=== PATIENT | female | born 1940 ===

== ENCOUNTER 2022-01-02 16:36 | Inpatient (IN) | payer OTHER ==
[~2022-01-02] VITALS: Ht 157.5 cm; Wt 36.1 kg
[2022-01-02 17:01] LABS: Hematocrit 41.9 % (33.0-51.0); Hemoglobin 13.8 g/dL (11.5-16.0); Mean Corpuscular HGB 29.3 pg (26.0-34.0); Mean Corpuscular HGB Conc 32.9 g/dL (31.5-36.5); Mean Corpuscular Volume 89 fL (80-100); Mean Platelet Volume 12.2 fL (9.1-12.4); Platelet Count 273 K/mm3 (150-400); RDW Coefficient Variation 15.8 % (11.7-14.2); Red Blood Cell Count 4.71 M/mm3 (3.80-5.20)
[2022-01-02 17:24] LABS: Albumin, Blood 2.5 g/dL (3.4-5.0); Albumin/Globulin Ratio 0.7 (0.8-1.8); Bilirubin, Total 1.1 mg/dL (0.1-1.0); Bun/Creatinine Ratio 27.5 (12.0-20.0); Calcium, Blood 9.2 mg/dL (8.5-10.1); Creatinine, Blood 0.98 mg/dL (0.40-1.00); Globulin, Blood 3.8 g/dL (2.2-4.0); Potassium, Blood 4.6 mmol/L (3.5-5.5); Total Protein, Blood 6.3 g/dL (6.4-8.2)
[2022-01-02 17:52] LABS: White Blood Cell Count 18.07 K/mm3 (4.00-11.30)
[2022-01-02 17:58] LABS: BASOPHILS PERCENT MAN 0 % (0-2); EOSINOPHILS PERCENT MAN 0 % (0-6); LYMPHOCYTES ABSOLUTE MAN 1.62 K/mm3 (0.84-5.20); LYMPHOCYTES PERCENT MAN 9 % (21-46); MONOCYTES ABSOLUTE MAN 1.26 K/mm3 (0.16-1.47); MONOCYTES PERCENT MAN 7 % (4-13); NEUTROPHILS ABSOLUTE MAN 15.17 K/mm3 (1.96-9.15); SEG NEUTROPHILS PERCENT MAN 84 % (41-73); TOTAL CELLS COUNTED 100
[2022-01-03 00:41] LABS: Influenza A, PCR NEGATIVE (NEGATIVE); Influenza B, PCR NEGATIVE (NEGATIVE); Resp Syncytial Virus, PCR NEGATIVE (NEGATIVE); SARS-Cov-2 (COVID-19) PCR, MMC NEGATIVE (NEGATIVE)
[2022-01-03] MEDS ORDERED: LISI20 PO (04:18)
[2022-01-03] MEDS ORDERED: ALBU2.5V5 INH (04:19)
[2022-01-03] MEDS ORDERED: MELATONIN5 M1 (04:20)
[2022-01-03] MEDS ORDERED: MASOPHEN325 M4 PO (04:21)
[2022-01-03] MEDS ORDERED: Norco 10-325 T1 EACH PO (04:23)
[2022-01-03] MEDS ORDERED: LOPE2C PO (04:35)
[2022-01-03] MEDS ORDERED: AMLO10 PO (04:36)
[2022-01-03 05:34] LABS: BASOPHILS ABSOLUTE AUTO 0.01 K/mm3 (0.00-0.23); BASOPHILS PERCENT AUTO 0 % (0-2); EOSINOPHILS PERCENT AUTO 0 % (0-6); Hematocrit 39.4 % (33.0-51.0); Hemoglobin 12.9 g/dL (11.5-16.0); IMMATURE GRAN ABSOLUTE AUTO 0.07 K/mm3 (0.00-0.10); IMMATURE GRAN PERCENT AUTO 1 % (0-1); LYMPHOCYTES ABSOLUTE AUTO 0.83 K/mm3 (0.84-5.20); LYMPHOCYTES PERCENT AUTO 8 % (21-46); MONOCYTES ABSOLUTE AUTO 0.54 K/mm3 (0.16-1.47); MONOCYTES PERCENT AUTO 5 % (4-13); Mean Corpuscular HGB 29.3 pg (26.0-34.0); Mean Corpuscular HGB Conc 32.7 g/dL (31.5-36.5); Mean Corpuscular Volume 89 fL (80-100); NEUTROPHILS ABSOLUTE AUTO 9.19 K/mm3 (1.96-9.15); NEUTROPHILS PERCENT AUTO 86 % (41-73); Platelet Count 218 K/mm3 (150-400); RDW Coefficient Variation 15.6 % (11.7-14.2); RDW Standard Deviation 49.9 fL (35.1-46.3); Red Blood Cell Count 4.41 M/mm3 (3.80-5.20); White Blood Cell Count 10.64 K/mm3 (4.00-11.30)
[2022-01-03 05:53] LABS: Albumin, Blood 2.4 g/dL (3.4-5.0); Albumin/Globulin Ratio 0.7 (0.8-1.8); Bilirubin, Total 0.8 mg/dL (0.1-1.0); Bun/Creatinine Ratio 32.5 (12.0-20.0); Calcium, Blood 8.6 mg/dL (8.5-10.1); Creatinine, Blood 0.83 mg/dL (0.40-1.00); Globulin, Blood 3.6 g/dL (2.2-4.0); Potassium, Blood 4.5 mmol/L (3.5-5.5)
--- NOTE | 2022-01-03 07:47 | NUR ---
NEW ADMISSION FROM ER. PT A/0X4 VERY PLEASANT AND LYUBOV TO MAKE NEEDS KNOWN. SBA UNSTEAD ON FEET. PT REQUESTING THIS MORNING SHE BE ALLOWED TO REST D/T NOT GETTING MUCH SLEEP. CALL LIGHT WITHIN REACH.
[2022-01-03 09:05] LABS: Alpha Feto Protein, Tumor Mkr 4.1 ng/mL (0.0-8.0); Cancer Antigen 19-9 434.6 U/mL (2.0-37.0)
--- NOTE | 2022-01-03 11:30 | NUR ---
Pt resting in bed and A&OX4. Pt's friend at bedside. Engaged in therapeutic listening as Pt discusses plan of care and findings. Pt reports plan to wait until all information is available before making a decision. She reports if cancer is metatstatic she does not want to pursue treatment. She reports her son had metastatic pancreatic cancer and does not want to go through what he went through. Continued therapeutic listening. Pt and friend report adequate support at home and also has the option to move back down to [place] with her daughter. Discussed code status wishes. Educated on life sustaining treatments including risk factors and implications of CPR. Pt reports her wishes are Full Code for now pending more information regarding cancer diagnosis. Pt does report [facility]. Continued therapeutic listening and answered questions. Pt expresses appreciaiton and reports no new concerns at this time. Palliative Care will remain available.
--- NOTE | 2022-01-03 13:01 | NUR ---
Late Entry from previous visit note. [facility]ed [facility]. [facility] responds with no AD on file.
--- NOTE | 2022-01-03 16:48 | NUR ---
DAY SHIFT SUMMARY 81 YR OLD FEMALE WITH SEPSIS PNEUMONIA. NEW DX WITH CANCER AND PAST HX OF CANCER. PT IS A RETIRED NURSE. FAMILY/FRIENDS AT BEDSIDE THROUGHOUT SHIFT. ABLE TO TAKE MEDS WHOLE, ON RA, PALIATIVE CARE CONSULT THIS SHIFT. PT ON TELE WITH NSR IN THE 80S. CALL LIGHT WITHIN REACH AND ABLE TO CALL APPROPRIATE.
[2022-01-04 05:39] LABS: BASOPHILS ABSOLUTE AUTO 0.03 K/mm3 (0.00-0.23); BASOPHILS PERCENT AUTO 0 % (0-2); EOSINOPHILS ABSOLUTE AUTO 0.06 K/mm3 (0.00-0.68); EOSINOPHILS PERCENT AUTO 0 % (0-6); Hematocrit 36.7 % (33.0-51.0); Hemoglobin 11.6 g/dL (11.5-16.0); IMMATURE GRAN ABSOLUTE AUTO 0.09 K/mm3 (0.00-0.10); IMMATURE GRAN PERCENT AUTO 1 % (0-1); LYMPHOCYTES ABSOLUTE AUTO 1.81 K/mm3 (0.84-5.20); LYMPHOCYTES PERCENT AUTO 11 % (21-46); MONOCYTES ABSOLUTE AUTO 1.22 K/mm3 (0.16-1.47); MONOCYTES PERCENT AUTO 8 % (4-13); Mean Corpuscular HGB 28.6 pg (26.0-34.0); Mean Corpuscular HGB Conc 31.6 g/dL (31.5-36.5); Mean Corpuscular Volume 91 fL (80-100); Mean Platelet Volume 12.5 fL (9.1-12.4); NEUTROPHILS ABSOLUTE AUTO 13.16 K/mm3 (1.96-9.15); NEUTROPHILS PERCENT AUTO 80 % (41-73); Platelet Count 217 K/mm3 (150-400); RDW Standard Deviation 51.4 fL (35.1-46.3); Red Blood Cell Count 4.05 M/mm3 (3.80-5.20); White Blood Cell Count 16.37 K/mm3 (4.00-11.30)
[2022-01-04 06:10] LABS: Albumin, Blood 2.1 g/dL (3.4-5.0); Albumin/Globulin Ratio 0.6 (0.8-1.8); Bilirubin, Total 0.7 mg/dL (0.1-1.0); Calcium, Blood 8.6 mg/dL (8.5-10.1); Creatinine, Blood 1.32 mg/dL (0.40-1.00); Globulin, Blood 3.3 g/dL (2.2-4.0); Total Protein, Blood 5.4 g/dL (6.4-8.2)
--- NOTE | 2022-01-04 07:29 | NUR ---
PT REQUESTING ENEMA OVERNIGHT. PER DR. LOVE TRY USING SUPPOSITORY FIRST. PT AGREEABLE TO PLAN HOWEVER ONCE AVAILABLE PT CHANGED HER MIND AND WANTED TO SLEEP. PT C/O NAUSEA/PAIN AND MEDICATED PER AUG.
--- NOTE | 2022-01-04 08:00 | NUR ---
pt laying in bed watching tv, a/ox3, pleasant and cooperative with care, follows commands well, denies pain, spoke about wanting an enema today, takes po meds without diff, skin pale c/w/d, mara, lungs have exp wheezing t/o, resp even and unlabored, no cough noted at this time, currently on r/a, hrr, no edema noted, iv site to rac, s.l. site is clear and patent, btx4, abd flat soft nontender, voids without diff, skin pale, and frail, mara barton call light in reach.
[2022-01-04 10:08] LABS: International Normalized Ratio 1.07; Prothrombin Time Results 11.2 Sec (9.7-11.5)
--- NOTE | 2022-01-04 18:36 | NUR ---
pt was given a suppos today with no results, attempted twice, no acute changes this shift. call light in reach.
[2022-01-05 05:22] LABS: Hematocrit 40.9 % (33.0-51.0); Hemoglobin 12.9 g/dL (11.5-16.0); Mean Corpuscular HGB 28.8 pg (26.0-34.0); Mean Corpuscular HGB Conc 31.5 g/dL (31.5-36.5); Mean Corpuscular Volume 91 fL (80-100); Mean Platelet Volume 12.1 fL (9.1-12.4); Platelet Count 259 K/mm3 (150-400); RDW Coefficient Variation 16.2 % (11.7-14.2); RDW Standard Deviation 53.5 fL (35.1-46.3); Red Blood Cell Count 4.48 M/mm3 (3.80-5.20)
[2022-01-05 05:30] LABS: BASOPHILS ABSOLUTE AUTO 0.02 K/mm3 (0.00-0.23); BASOPHILS PERCENT AUTO 0 % (0-2); EOSINOPHILS ABSOLUTE AUTO 0.01 K/mm3 (0.00-0.68); EOSINOPHILS PERCENT AUTO 0 % (0-6); IMMATURE GRAN ABSOLUTE AUTO 0.12 K/mm3 (0.00-0.10); IMMATURE GRAN PERCENT AUTO 1 % (0-1); LYMPHOCYTES ABSOLUTE AUTO 0.91 K/mm3 (0.84-5.20); LYMPHOCYTES PERCENT AUTO 6 % (21-46); MONOCYTES ABSOLUTE AUTO 1.04 K/mm3 (0.16-1.47); MONOCYTES PERCENT AUTO 6 % (4-13); NEUTROPHILS ABSOLUTE AUTO 14.38 K/mm3 (1.96-9.15); NEUTROPHILS PERCENT AUTO 87 % (41-73); White Blood Cell Count 16.48 K/mm3 (4.00-11.30)
[2022-01-05 05:50] LABS: Bun/Creatinine Ratio 28.6 (12.0-20.0); Calcium, Blood 8.5 mg/dL (8.5-10.1); Creatinine, Blood 1.19 mg/dL (0.40-1.00); Potassium, Blood 5.1 mmol/L (3.5-5.5)
--- NOTE | 2022-01-05 07:26 | NUR ---
PT C/O CONT. TO FEEL CONSTPIATED AND REQUESTING FLEET ENEMA. RONDA NET WPF DEVELOPER NOTIFIED WITH ORDER. PT LATER C/O WORSENING ABD PAIN AND REPORTING IT IS SPREADING TO THE LEFT SIDE. RIGHT SIDE OF ABDOMEN FIRM BOWEL SOUNDS HYPOACTIVE. ABDOMEN XRAY REQUESTED AND PER MD PT ALSO LYUBOV TO HAVE FENTANYL FOR WORSENING PAIN. PT BROUGHT DOWN TO XRAY HOWEVER AWAITING RESULTS. CRITICAL BLOOD GLUCOSE CALLED BY [facility] THIS MORNING WITH LABS. PER PT SHE HAS HYPOGLYCIMIA WHEN SHE DOESN'T EAT AND HER BG CAN BE AROUND 50S. PT REPORTS SHE HAS NOT BEEN EATING WELL BECAUSE WHEN SHE SWALLOWS IT IS VERY PAINFUL. PT GIVEN APPLE JUICE WITH SUGAR AND NOTIFIED WITH ORDER FOR D5 IN 1/2 NORMAL SALINE. PT ONLY LYUBOV TO DRINK 1 1/2 CUP OF APPLE JUICE. BG CHECKED AFTER JUICE AND GLUCOMETER READING <42. NOTIFIED AND PER MD NO ADDITIONAL INTERVENTION AT THIS TIME.
--- NOTE | 2022-01-05 08:00 | NUR ---
pt up to bsc attempting to move her bowels, she reports she had an enema last night, but not successful, a/ox3, pleasant and cooperative with care, follows commands well, states she has a little pain with coughing, lungs are clear in upper espinoza, dim in bases resp even and unlabored, no cough noted at this time, but reports she has an occational cough, hrr, no edema noted, ppp+2, cap refill<3sec, vs stable, afebrile, iv site to lfa site is clear and patent, infusing d5 as ordered due to low glucose this am, btx4, abd firm somewhat tender, feels constipated, voids without diff, skin frail, c/w/d, maew, general weakness, mick, call light in reach.
--- NOTE | 2022-01-05 18:16 | NUR ---
pt has been a bit more painful today, continues to be constipated, started her on miralax today, no further changes this shift. call light in reach.
--- NOTE | 2022-01-06 05:24 | NUR ---
PT UNABLE TO HAVE NOTABLE BM DURING THE NIGHT. MEDICATED FOR PAIN PER AUG. MAG CITRATE ORDERED FOR MORNING. PT STATES SHE FEELS WEAKER TODAY.
[2022-01-06 05:37] LABS: BASOPHILS ABSOLUTE AUTO 0.02 K/mm3 (0.00-0.23); BASOPHILS PERCENT AUTO 0 % (0-2); EOSINOPHILS ABSOLUTE AUTO 0.01 K/mm3 (0.00-0.68); EOSINOPHILS PERCENT AUTO 0 % (0-6); Hematocrit 36.8 % (33.0-51.0); Hemoglobin 11.8 g/dL (11.5-16.0); IMMATURE GRAN ABSOLUTE AUTO 0.08 K/mm3 (0.00-0.10); IMMATURE GRAN PERCENT AUTO 1 % (0-1); LYMPHOCYTES PERCENT AUTO 7 % (21-46); MONOCYTES ABSOLUTE AUTO 1.05 K/mm3 (0.16-1.47); MONOCYTES PERCENT AUTO 8 % (4-13); Mean Corpuscular HGB 29.1 pg (26.0-34.0); Mean Corpuscular HGB Conc 32.1 g/dL (31.5-36.5); Mean Corpuscular Volume 91 fL (80-100); Mean Platelet Volume 12.4 fL (9.1-12.4); NEUTROPHILS ABSOLUTE AUTO 11.71 K/mm3 (1.96-9.15); NEUTROPHILS PERCENT AUTO 85 % (41-73); Platelet Count 211 K/mm3 (150-400); RDW Coefficient Variation 16.1 % (11.7-14.2); RDW Standard Deviation 52.7 fL (35.1-46.3); Red Blood Cell Count 4.06 M/mm3 (3.80-5.20); White Blood Cell Count 13.77 K/mm3 (4.00-11.30)
[2022-01-06 06:02] LABS: Albumin, Blood 2.1 g/dL (3.4-5.0); Anion Gap 8 mmol/L (6-16); Blood Urea Nitrogen 33 mg/dL (8-24); Bun/Creatinine Ratio 28.9 (12.0-20.0); CO2, Blood 19 mmol/L (21-32); Calcium, Blood 8.3 mg/dL (8.5-10.1); Chloride, Blood 102 mmol/L (98-108); Creatinine, Blood 1.14 mg/dL (0.40-1.00); Glomerular Filtration Rate 48 (60-); Glucose, Blood 143 mg/dL (70-99); Phosphorus, Blood 3.1 mg/dL (2.5-4.9); Potassium, Blood 4.8 mmol/L (3.5-5.5); Sodium, Blood 129 mmol/L (136-145)
--- NOTE | 2022-01-06 17:18 | NUR ---
Met with pt and her daughter this afternoon--Dr. Muro told pt there is nothing more he can do, and it's time for hospice. Pt's daughter Faustina would like to take pt home to [place] for hospice. Her first choice is [facility], but she says she just wants to get her mom home with her. Faustina Idris phone is [phone]. She lives at [address] [place] [address], [place] [facility].
--- NOTE | 2022-01-06 17:31 | NUR ---
PATIENT A/OX4 UP, UP WITH 1 ASSIST. REPORTS INCREASED WEAKNESS TODAY. WENT DOWN TO IMAGING TODAY FOR A LIVER BIOPSY. DR. ACEVEDO CONSULTED AND PATIENT HAS OPTED FOR HOSPICE CARE. PALLIATIVE CARE MET WITH PATIENT AND HER DAUGHTER. DAUGHTER WANTS TO TAKE HER HOME TO [place] FOR HOSPICE. PAIN WELL CONTROLLED TODAY WITH PO DILAUDID. APPETITE REMAINS VERY POOR. ZOFRAN GIVEN X1 FOR NAUSEA WITH STATED RELIEF. PATIENT REPORTS SEVERE SORE THROAT, CEPACOL LOZENGES ORDERED TO TREAT. PATIENT DID NOT HAVE A BM TODAY AND REFUSED PRN BOWEL CARE ORDERED. 20G IV TO L FA WNL, D5 1/2 NS INFUSING. VERY KIND AND COOPERATIVE WITH CARE. CURRENTLY NO ORDERS FOR COMFORT MEASURES.
[2022-01-07 05:39] LABS: BASOPHILS ABSOLUTE AUTO 0.03 K/mm3 (0.00-0.23); BASOPHILS PERCENT AUTO 0 % (0-2); EOSINOPHILS ABSOLUTE AUTO 0.03 K/mm3 (0.00-0.68); EOSINOPHILS PERCENT AUTO 0 % (0-6); Hemoglobin 12.2 g/dL (11.5-16.0); IMMATURE GRAN ABSOLUTE AUTO 0.09 K/mm3 (0.00-0.10); IMMATURE GRAN PERCENT AUTO 1 % (0-1); LYMPHOCYTES ABSOLUTE AUTO 0.77 K/mm3 (0.84-5.20); LYMPHOCYTES PERCENT AUTO 5 % (21-46); MONOCYTES ABSOLUTE AUTO 1.33 K/mm3 (0.16-1.47); MONOCYTES PERCENT AUTO 8 % (4-13); Mean Corpuscular HGB 28.8 pg (26.0-34.0); Mean Corpuscular HGB Conc 32.1 g/dL (31.5-36.5); Mean Corpuscular Volume 90 fL (80-100); Mean Platelet Volume 12.5 fL (9.1-12.4); NEUTROPHILS ABSOLUTE AUTO 13.75 K/mm3 (1.96-9.15); NEUTROPHILS PERCENT AUTO 86 % (41-73); Platelet Count 210 K/mm3 (150-400); RDW Coefficient Variation 16.2 % (11.7-14.2); RDW Standard Deviation 52.3 fL (35.1-46.3); Red Blood Cell Count 4.24 M/mm3 (3.80-5.20)
[2022-01-07 05:43] LABS: Albumin, Blood 2.1 g/dL (3.4-5.0); Anion Gap 9 mmol/L (6-16); Blood Urea Nitrogen 29 mg/dL (8-24); Bun/Creatinine Ratio 29.9 (12.0-20.0); CO2, Blood 19 mmol/L (21-32); Calcium, Blood 8.7 mg/dL (8.5-10.1); Chloride, Blood 101 mmol/L (98-108); Creatinine, Blood 0.97 mg/dL (0.40-1.00); Glomerular Filtration Rate 58 (60-); Glucose, Blood 92 mg/dL (70-99); Phosphorus, Blood 2.7 mg/dL (2.5-4.9); Potassium, Blood 5.3 mmol/L (3.5-5.5); Sodium, Blood 129 mmol/L (136-145)
--- NOTE | 2022-01-07 05:47 | NUR ---
SHIFT SUMMARY PT HAS BECOME INCREASINGLY MORE WEAK THIS SHIFT. SHE MUST USE THE BEDSIDE COMMODE AND NEEDS ASISTANCE TO GET UP AND DOWN. HER IV INFILTRATED AND PT REQUIESTED THAT ANOTHER NOT BE PUT IN. NEW PAIN MEDICATIONS WERE ORDERED AND HER PAIN HAS BEEN MANAGED WELL. SHE WAS STILL WITHDRAWN AND DEPRESSED, BUT SPOKE BRIEFLY WITH HER CHILD NUTRITION MANAGER WHICH GAVE HER COMFORT. THE PT HAS BEEN SLIGHTLY MORE AGITATED THAN USUAL, BUT IT OVER ALL COOPERATIVE. PLAN IS STILL TO DISCHARGE TO DAUGHTER'S ON HOSPICE. BED IN LOWEST POSITION AND CALL LIGHT IN REACH
--- NOTE | 2022-01-07 11:05 | NUR ---
PATIENT REPORTS 7/10 R FLANK PAIN AND NAUSEA. MEDICATED WITH ROXINOL AND ZOFRAN. PATIENT ASSISTED TO REPOSITION.
--- NOTE | 2022-01-07 12:54 | NUR ---
PATIENT GIVEN AN ENEMA AND DID HAVE A SMALL AMOUNT OF STOOL OUTPUT. BECAME PAINFUL AFTER AND ROXINOL GIVEN TO TREAT. BEDDING AND ATTENDS CHANGED. PATIENT IS NOW RESTING COMFORTABLY.
--- NOTE | 2022-01-07 18:15 | NUR ---
PATIENT UP TO BSC. PASSING GAS, BUT ONLY A VERY SMALL BM EARLIER IN THE SHIFT. FLEET ENEMA, MIRALAX AND LACTULOSE GIVEN TO TREAT CONSTIPATION. VOMITTED X1 THIS EVENING, TREATED NAUSEA WITH ZOFRAN WITH GOOD RELIEF. DILAUDID GIVEN Q4 TODAY AND ROXINOL PRN FOR BREAKTHROUGH. PAIN BETTER CONTROLLED AND PATIENT WAS ABLE TO REST SOME TODAY. FALL PRECAUTIONS IN PLACE, INCREASED WEAKNESS TODAY. PLAN IS TO D/C HOME WITH HOSPICE WITH DAUGHTER IN [place] TOMORROW.
--- NOTE | 2022-01-08 00:16 | NUR ---
PT WASN'T ABLE TO SWALLOW ALL OF THE LACTULOSE- HELD 20CC. ROXANOL GIVEN WITHOUT COMPLICATIONS.
--- NOTE | 2022-01-08 00:20 | NUR ---
HOB ELEVATED - PT ABLE TO COUGH AND CLEAR THROAT AFTER SMALL DOSE OF LACTULOSE GIVEN. PT DECLINED REPOSITIONING, STATES "I AM FINE." CALL LIGHT WITHIN REACH.
--- NOTE | 2022-01-08 04:05 | NUR ---
PT REPOSITIONED FOR COMFORT. ALL EXTREMITIES COOL - PROVIDED A WARM BLANKET. PT SAYS "NO" TO PAIN. PT NOT RESPONSIVE AT THE BEGINNING OF THE SHIFT. WILL CONTACT PT'S DAUGHTER, ARACELI WITH AN UPDATE.
--- NOTE | 2022-01-08 04:17 | NUR ---
CONTACTED ARACELI, DAUGHTER WITH AN UPDATE IN CHANGE IN PT CONDITION. SHE REPORTS SHE IS 1 HOUR AWAY, BUT WILL BE ON HER WAY. UPDATED PT THAT HER DAUGHTER ARACELI WILL BE COMING IN. ALSO UPDATED, TAY GOODWIN.
--- NOTE | 2022-01-08 04:53 | NUR ---
SHIFT SUMMARY - PT IS COMFORT CARE. I CONTACTED JESSICA, DAUGHTER THIS AM, WITH AN UPDATE ON HER MOTHER'S STATUS - PT EXTREMITIES ARE COOL, AND HER MENTATION HAS DECLINED TONIGHT. JESSICA WILL BE COMING IN THIS AM. PT ALSO HAS MOTTLING TO BLE. PT CONTINUES RESPONSIVE AFTER PROMPTING SEVERAL TIMES WITH VERBAL COMMUNICATION. PT SAID "NO" TO PAIN THIS AM. WILL CONTINUE TO MONITOR UNTIL AM SHIFT CHANGE. CALL LIGHT WITHIN REACH. BED IN LOW POSITION.
--- NOTE | 2022-01-08 05:48 | NUR ---
JESSICA, PT'S DAUGHTER IS HERE - SHE IS TEARFUL. UPDATED ON PT STATUS, AND JUST MEDICATED PT FOR PAIN. DOOR CLOSED FOR FAMILY/PT COMFORT.
--- NOTE | 2022-01-08 06:04 | NUR ---
OFFERRED SPIRITUAL CARE AND/OR PALLIATIVE CARE TO DAUGHTER - DECLINED AT THIS TIME. WILL LET STAFF KNOW IF SHE CHANGES HER MIND. JESSICA, DAUGHTER SITTING AT BEDSIDE.
--- NOTE | 2022-01-08 07:00 | NUR ---
QUIQUE CALLED PT'S DAUGHTER CALLED STAFF INTO ROOM. 2 STAFF MEMBERS CONFIRMED PT'S PASSING VIA STETHOSCOPE. QUIQUE CALLED AT 0700. PRINTING GREY CLOTH TENDER AWARE AND DR ARIAS NOTIFIED
--- NOTE | 2022-01-08 07:17 | NUR ---
CHELSEA CONTRERAS IS ASSUMING RESPONSIBILITY OF CARE (UPDATED MY DOCUMENTATION, DUE TO [address].)
--- NOTE | 2022-01-08 07:17 | NUR ---
TIME OF 0700. REPORT GIVEN TO DIANE DAY SHIFT RN - SHE IS ASSUMING RESPONSIBILITY NOW. DAY SHIFT CN NOTIFIED OF TIME OF .
--- NOTE | 2022-01-08 09:51 | NUR ---
PT COLLECTED BY JAEL FROM [facility]. FACE SHEET PROVIDED AND SUPERVISOR [employer]URIT[employer] VAULT AWARE OF TIMING. FAMILY REMOVED BELONGINGS
== END 2022-01-08 07:00 | DRG 871 ==
LOC: ER 16:36 → MEDS 01-03 01:56
PROVIDERS: Family Medicine; Internal Medicine; Physician Assistant; Student in an Organized Health Care Education/Training Program; ADMIT Internal Medicine
PROC: 3E03329 Introduction of Other Anti-infective into Peripheral Vein, Percutaneous Approach (ICD-10-PCS; principal; 2022-01-03)
PROC: 0FB13ZX Excision of Right Lobe Liver, Percutaneous Approach, Diagnostic (ICD-10-PCS; 2022-01-06)
DX: A41.9 Sepsis, unspecified organism (principal); E43 Unspecified severe protein-calorie malnutrition; J18.9 Pneumonia, unspecified organism; J44.0 Chronic obstructive pulmonary disease with (acute) lower respiratory infection; R64 Cachexia; Z68.1 Body mass index [BMI] 19.9 or less, adult; C78.7 Secondary malignant neoplasm of liver and intrahepatic bile duct; C25.9 Malignant neoplasm of pancreas, unspecified; N17.9 Acute kidney failure, unspecified; E87.1 Hypo-osmolality and hyponatremia; E87.2 Acidosis; Z66 Do not resuscitate; Z51.5 Encounter for palliative care; R65.20 Severe sepsis without septic shock; Z20.822 Contact with and (suspected) exposure to COVID-19; N18.9 Chronic kidney disease, unspecified; E16.2 Hypoglycemia, unspecified; D72.829 Elevated white blood cell count, unspecified; K59.00 Constipation, unspecified; F17.210 Nicotine dependence, cigarettes, uncomplicated; R09.02 Hypoxemia; I71.9 Aortic aneurysm of unspecified site, without rupture; I25.2 Old myocardial infarction; Z88.6 Allergy status to analgesic agent; Z88.0 Allergy status to penicillin; Z88.8 Allergy status to other drugs, medicaments and biological substances; Z79.51 Long term (current) use of inhaled steroids; Z79.899 Other long term (current) drug therapy
CPT/HCPCS: 0241U; 36415; 47000; 71046; 74018; 74177; 77012; 80048; 80053; 80069; 82105; 82947; 83605; 84145; 84484; 85025; 85610; 86301; 87040; 88307; 88341; 88342; 93005; 93010; 94640; 94664; 94760; 96365; 96375; 99285-25; A9270; J0456; J0696; J1650; J2270; J2405; J3010; J7030; J7040; J7042; J7050; Q9967